=== PATIENT | female | born 1935 | race Native Hawaiian/Other Pacific Islander ===

== ENCOUNTER 2019-06-15 10:13 | Inpatient (IN) | payer OTHER, MEDICARE ==
[~2019-06-15] VITALS: Ht 157.5 cm; Wt 60.8 kg
[2019-06-15] VITALS (8 sets, daily range): BP systolic 119–141; BP diastolic 56–75; TEMP 97.5–102; Ht 157.5 cm; Wt 60.8 kg
[2019-06-15 11:29] LABS: PLATELET COUNT 226 K/uL (152-353)
[2019-06-15 11:44] LABS: POTASSIUM 3.9 mmol/L (3.6-5.2)
[2019-06-16] VITALS: BP 94/44; TEMP 99.5
[2019-06-16 04:00] VITALS: BP 125/58; TEMP 98.8
[2019-06-16 08:00] VITALS: BP 120/55; TEMP 98.6
[2019-06-16 12:00] VITALS: BP 120/56; TEMP 98.7
[2019-06-16 16:00] VITALS: BP 141/52; TEMP 99.6
[2019-06-16 20:00] VITALS: BP 105/52; TEMP 99.6
[2019-06-17] VITALS: BP 134/65; TEMP 100.5
[2019-06-17 04:00] VITALS: BP 120/55; TEMP 101.4
[2019-06-17 08:00] VITALS: BP 117/60; TEMP 98.2
== END 2019-06-17 11:40 | DRG 603 ==
LOC: ED 10:13 → MED/SURG 12:40
PROVIDERS: Emergency Medicine; ADMIT Internal Medicine
DX: L03.116 Cellulitis of left lower limb (principal); N39.0 Urinary tract infection, site not specified; M79.662 Pain in left lower leg; B96.29 Other Escherichia coli [E. coli] as the cause of diseases classified elsewhere
CPT/HCPCS: 36415; 80053; 81000; 85027; 85379; 85610; 85730; 87077; 87086; 87088; 87186; 96360; 96365; 99284; J0696

== ENCOUNTER 2019-07-16 08:17 | Outpatient (CLI) | payer OTHER, MEDICARE | END 2019-07-16 23:20 | disposition home or self-care (01) | LOC: MAMMO 08:17 | DX: Z12.31 Encounter for screening mammogram for malignant neoplasm of breast (principal) ==

== ENCOUNTER 2019-08-18 08:03 | Outpatient (CLI) | payer OTHER, MEDICARE | END 2019-08-18 20:31 | disposition home or self-care (01) | LOC: MAMMO 08:03 | DX: R92.8 Other abnormal and inconclusive findings on diagnostic imaging of breast (principal) ==

== ENCOUNTER 2022-02-05 12:15 | Outpatient (CLI) | payer OTHER, MEDICARE | END 2022-02-05 20:55 | disposition home or self-care (01) | LOC: LABW 12:15 | PROVIDERS: ATTEND Nurse Practitioner Family | DX: R55 Syncope and collapse (principal); R07.89 Other chest pain; R60.0 Localized edema | CPT/HCPCS: 36415; 82552; 83880; 84484 ==

== ENCOUNTER 2022-02-07 10:22 | Outpatient (CLI) | payer OTHER, MEDICARE | END 2022-02-07 19:18 | disposition home or self-care (01) | LOC: CT 10:22 | PROVIDERS: ATTEND Nurse Practitioner Family | DX: R55 Syncope and collapse (principal) ==

== ENCOUNTER 2022-02-15 11:09 | Outpatient (CLI) | payer OTHER, MEDICARE | END 2022-02-15 19:32 | disposition home or self-care (01) | LOC: US 11:09 | PROVIDERS: ATTEND Nurse Practitioner Family | DX: R55 Syncope and collapse (principal); R07.89 Other chest pain; R53.83 Other fatigue; R06.02 Shortness of breath ==

== ENCOUNTER 2022-02-26 13:51 | Emergency (ER) | payer OTHER, MEDICARE ==
[~2022-02-26] VITALS: Ht 157.5 cm; Wt 60.8 kg
[2022-02-26 13:57] VITALS: BP 146/91; TEMP 99.3
== END 2022-02-26 15:30 | disposition home or self-care (01) ==
LOC: ED 13:51
DX: M51.34 Other intervertebral disc degeneration, thoracic region (principal); M13.88 Other specified arthritis, other site; M19.012 Primary osteoarthritis, left shoulder
CPT/HCPCS: 99283

== ENCOUNTER 2023-02-27 14:20 | Outpatient (CLI) | payer OTHER, MEDICARE ==
[2023-02-27 15:18] LABS: POTASSIUM 4.2 mmol/L (3.6-5.2)
[2023-02-27 15:29] LABS: PLATELET COUNT 262 K/uL (152-353)
== END 2023-02-27 20:44 | disposition home or self-care (01) ==
LOC: LAB 14:20
PROVIDERS: ATTEND Nurse Practitioner Family
DX: G47.00 Insomnia, unspecified (principal); F41.8 Other specified anxiety disorders; R63.0 Anorexia; G25.0 Essential tremor; E55.9 Vitamin D deficiency, unspecified; R53.83 Other fatigue; E78.49 Other hyperlipidemia; R53.81 Other malaise; M19.90 Unspecified osteoarthritis, unspecified site; Z79.899 Other long term (current) drug therapy; R68.89 Other general symptoms and signs
CPT/HCPCS: 80053; 80061; 82306; 83036; 84439; 84443; 85027

== ENCOUNTER 2023-05-09 08:59 | Outpatient (CLI) | payer OTHER, MEDICARE | END 2023-05-09 19:47 | disposition home or self-care (01) | LOC: RESP 08:59 | PROVIDERS: ATTEND Nurse Practitioner Family | DX: E78.49 Other hyperlipidemia (principal); R53.83 Other fatigue; R00.2 Palpitations; Z79.899 Other long term (current) drug therapy ==

== ENCOUNTER 2023-05-14 11:15 | Outpatient (CLI) | payer OTHER, MEDICARE | END 2023-05-14 20:23 | disposition home or self-care (01) | LOC: US 11:15 | PROVIDERS: ATTEND Nurse Practitioner Family | DX: R00.2 Palpitations (principal); R94.31 Abnormal electrocardiogram [ECG] [EKG]; R29.818 Other symptoms and signs involving the nervous system ==